=== PATIENT | female | born 1960 | race Caucasian/White ===

== ENCOUNTER 2017-05-19 10:02 | Inpatient (IN) ==
[2017-05-19] MEDS ORDERED: ASPIRIN 325 MG TABLET PO STA (10:36)
[2017-05-19 10:49] LABS: Basophils % 0.4 % (0.0-0.8); Eosinophils # 0.3 10*3/uL (0.0-0.87); Eosinophils % 2.6 % (0.00-10.9); Hematocrit 43.6 VOL% (35.7-47.0); Hemoglobin 14.5 GM/DL (12.0-16.0); Immature Granulocytes % 0.3 %; Immature Granulocytes Absolute 0.03 #; Lymphocytes # 3.4 10*3/uL (1.4-4.0); Mean Corpuscular HGB Conc 33.3 GM/DL (32-36); Mean Corpuscular Hemoglobin 29 PG (27-34); Mean Corpuscular Volume 88.1 FL (87-102); Mean Platelet Volume 11.1 FL (9.6-12.0); Monocytes # 0.9 10*3/uL (0.11-0.8); Neutrophils # 5.2 10*3/uL (1.4-7.4); Neutrophils % 52.7 % (38.7-73.9); Platelet Count 316 T/CUMM (130-400); Red Blood Count 4.95 MC/CUMM (3.8-5.5); Red Cell Distribution Width 13.7 % (9.3-17.3); White Blood Count 9.8 T/CUMM (4-12)
[2017-05-19] MEDS ORDERED: ASPIRIN 325 MG TABLET ONE (11:03)
[2017-05-19] MEDS ORDERED: NITROGLYCERIN SL 0.4 MG TABLET SL ONE (11:03)
[2017-05-19] MEDS: NITROGLYCERIN SL 0.4 MG TABLET SL PRN ×3 (11:05→11:23)
[2017-05-19 11:23] LABS: Calcium 9.2 MG/DL (8.5-10.1); Osmolality,Calculated 276.4 MOS/KG (273-304); Potassium 4.6 MMOL/L (3.5-5.1)
[2017-05-19] MEDS ORDERED: ACETAMINOPHEN 325 MG TABLET PO PRN (12:11)
[2017-05-19] MEDS ORDERED: ZALEPLON 5 MG CAPSULE PO PRN (12:11)
[2017-05-19] MEDS ORDERED: hydrALAZINE 20 MG/1 ML VIAL IV PRN (12:14)
[2017-05-19] MEDS ORDERED: DIAZEPAM 5 MG TABLET PO ONE (12:15)
[2017-05-19] MEDS ORDERED: diphenhydrAMINE CAP 25 MG CAPSULE PO ONE (12:15)
[2017-05-19] MEDS ORDERED: MAGNESIUM SULF RIDER 2 GM in PREMIX 1 EACH IV PRN (12:15)
[2017-05-19] MEDS ORDERED: ALPRAZolam 0.25 MG TABLET PO PRN (12:17)
[2017-05-19] MEDS ORDERED: METOPROLOL TARTRATE 25 MG TABLET ONE (18:04)
[2017-05-19] MEDS ORDERED: PANTOPRAZOLE 40 MG TABLET PO ONE (18:04)
[2017-05-19] MEDS: PANTOPRAZOLE 40 MG TABLET PO SCH (18:08)
[2017-05-19] MEDS: METOPROLOL TARTRATE 25 MG TABLET PO SCH ×2 (18:08→21:15)
[2017-05-19] MEDS ORDERED: ENOXAPARIN 40 MG/0.4 ML SYRINGE SUBCUT SCH (21:00)
[2017-05-19] MEDS ORDERED: ATORVASTATIN 80 MG TABLET PO SCH (21:00)
[2017-05-20 04:56] LABS: Basophils # 0.1 10*3/uL (0.0-0.2); Basophils % 0.5 % (0.0-0.8); Eosinophils # 0.3 10*3/uL (0.0-0.87); Eosinophils % 3.2 % (0.00-10.9); Hematocrit 39.6 VOL% (35.7-47.0); Hemoglobin 12.9 GM/DL (12.0-16.0); Immature Granulocytes % 0.2 %; Immature Granulocytes Absolute 0.02 #; Lymphocytes # 4.3 10*3/uL (1.4-4.0); Lymphocytes % 45.6 % (21.3-54.2); Mean Corpuscular HGB Conc 32.6 GM/DL (32-36); Mean Corpuscular Hemoglobin 29 PG (27-34); Mean Corpuscular Volume 89.6 FL (87-102); Monocytes # 0.7 10*3/uL (0.11-0.8); Neutrophils # 4.1 10*3/uL (1.4-7.4); Neutrophils % 43.5 % (38.7-73.9); Platelet Count 294 T/CUMM (130-400); Red Blood Count 4.42 MC/CUMM (3.8-5.5); Red Cell Distribution Width 13.8 % (9.3-17.3); White Blood Count 9.4 T/CUMM (4-12)
[2017-05-20] MEDS: SODIUM CHLORIDE 0.45% 1,000 ML IV SCH ×3 (05:23→15:30)
[2017-05-20 05:45] LABS: Calcium 8.1 MG/DL (8.5-10.1); Magnesium 2.3 MG/DL (1.8-2.4); Osmolality,Calculated 275.7 MOS/KG (273-304); Potassium 4.5 MMOL/L (3.5-5.1); Risk Ratio 8.37; Thyroid Stimulating Hormone 1.25 uIU/ml (0.358-3.74); VLDL CHOLESTEROL 64.4 MG/DL
[2017-05-20] MEDS ORDERED: LISINOPRIL 10 MG TABLET PO SCH (09:00)
[2017-05-20] MEDS ORDERED: ASPIRIN EC 81 MG TABLET PO SCH (09:00)
[2017-05-20] MEDS: PANTOPRAZOLE 40 MG TABLET PO SCH (09:44)
[2017-05-20] MEDS: METOPROLOL TARTRATE 25 MG TABLET PO SCH (09:44)
[2017-05-20] MEDS ORDERED: DIAZEPAM 5 MG TABLET ONE (12:31)
[2017-05-20] MEDS ORDERED: diphenhydrAMINE CAP 50 MG CAPSULE ONE ×2 (12:31→12:56)
[2017-05-20] MEDS ORDERED: HEPARIN/NACL 0.9% 2 UNITS/ML 2,000 ML IV ONE (12:51)
[2017-05-20] MEDS ORDERED: LIDOCAINE 1% 20 ML VIAL ONE (12:51)
[2017-05-20] MEDS ORDERED: MIDAZOLAM 2 MG/2 ML VIAL ONE (12:57)
[2017-05-20] MEDS ORDERED: NITROGLYCERIN DRIP 50 MG/250 ML BOTTLE IV ONE (12:57)
[2017-05-20] MEDS ORDERED: VERAPAMIL 5 MG/2 ML VIAL ONE (12:57)
[2017-05-20] MEDS ORDERED: HYDROmorphone 2 MG/1 ML VIAL ONE (12:59)
[2017-05-20] MEDS ORDERED: ENOXAPARIN 30 MG/0.3 ML SYRINGE ONE (13:21)
[2017-05-20] MEDS ORDERED: BISACODYL 5 MG TABLET PO PRN (13:51)
[2017-05-20] MEDS ORDERED: ONDANSETRON 4 MG/2 ML VIAL IV PRN (13:51)
[2017-05-20] MEDS ORDERED: guaiFENesin/DM ER 600-30 MG TABLET PO PRN (13:51)
[2017-05-20 18:59] VITALS: BP 151/70
== END 2017-05-20 19:38 | disposition home or self-care (01) | DRG 313 ==
LOC: N.ED 10:02 → N.EDINP 12:11 → SUATTDRO 12:11 → N.TELEN 19:20
PROVIDERS: ADMIT Internal Medicine Cardiovascular Disease; ATTEND Internal Medicine Cardiovascular Disease

== ENCOUNTER 2021-09-18 12:31 | Inpatient (IN) ==
[2021-09-18 13:01] LABS: Basophils % 0.2 % (0.0-0.8); Eosinophils # 0.1 10*3/uL (0.0-0.87); Eosinophils % 0.7 % (0.00-10.9); Hematocrit 36.5 VOL% (35.7-47.0); Hemoglobin 11.9 GM/DL (12.0-16.0); Immature Granulocytes % 0.6 %; Immature Granulocytes Absolute 0.08 #; Lymphocytes # 2.4 10*3/uL (1.4-4.0); Lymphocytes % 17.4 % (21.3-54.2); Mean Corpuscular HGB Conc 32.6 GM/DL (32-36); Mean Corpuscular Volume 81.3 FL (87-102); Mean Platelet Volume 10.5 FL (9.6-12.0); Monocytes % 7.1 % (1.7-12.7); Platelet Count 463 T/CUMM (130-400); Red Blood Count 4.49 MC/CUMM (3.8-5.5); Red Cell Distribution Width 15.4 % (9.3-17.3); White Blood Count 13.5 T/CUMM (4-12)
[2021-09-18 13:25] LABS: Alanine Aminotransferase 14 U/L (13-56); Albumin 3.6 G/DL (3.4-5.0); Alkaline Phosphatase 106 U/L (45-117); Aspartate Amino Transferase 11 U/L (0-37); Bilirubin,Total < 0.39 MG/DL (0.20-1.00); Blood Urea Nitrogen 12 MG/DL (7-18); Calcium 9.7 MG/DL (8.5-10.1); Carbon Dioxide 25 MMOL/L (21-32); Chloride 103 MMOL/L (98-107); Glucose 114 MG/DL (74-106); Osmolality,Calculated 273.8 MOS/KG (273-304); Potassium 3.8 MMOL/L (3.5-5.1); Sodium 137 MMOL/L (136-145); Total Protein 7.5 G/DL (6.4-8.2)
[2021-09-18 15:56] LABS: Hyaline Casts,Urine 71 /LPF (0-3); Mucus,Urine Many /LPF (Occasional); RBC,Urine 14 /HPF (0-4); Squamous Epithelial Cell,Urine Occasional /HPF (0-10)
[2021-09-18 15:57] LABS: Bilirubin,Urine Small mg/dL (Negative); Blood, Urine Trace mg/dL (Negative); Glucose,Urine (UA) Negative (Negative); Ketones,Urine 15 mg/dL (Negative); Nitrite,Urine Negative (Negative); Protein,Urine 100 mg/dL (Negative); Urine Appearance Clear (Clear); Urine Color Yellow (Yellow); Urine Specific Gravity 1.032 (1.001-1.035); Urine Urobilinogen 0.2 eU/dL (<2.0); Urine pH 5.5 (4.5-8.0)
[2021-09-18 16:21] LABS: Barbiturates Screen,Urine Negative (Negative); Benzodiazepines Screen,Urine Negative (Negative); Cannabinoid Screen,Urine Positive (Negative); Opiate Screen,Urine Negative (Negative); Phencyclidine Screen,Urine Negative (Negative)
[2021-09-18] MEDS ORDERED: GLUCAGON 1 MG VIAL IM PRN (16:48)
[2021-09-18] MEDS ORDERED: ONDANSETRON 4 MG/2 ML VIAL IV PRN (16:48)
[2021-09-18] MEDS ORDERED: DEXTROSE 10% 250 ML BAG IV PRN (16:55)
[2021-09-18 19:58] LABS: Risk Ratio 6.7; Thyroid Stimulating Hormone 2.45 uIU/ml (0.358-3.74); VLDL Cholesterol 27.2 MG/DL
[2021-09-18] MEDS: ACETAMINOPHEN 325 MG TABLET PO PRN (21:11)
[2021-09-18] MEDS: ENOXAPARIN 40 MG/0.4 ML SYRINGE SUBCUT SCH (21:11)
[2021-09-18 21:41] LABS: Folate 3.69 NG/ML (5.38-24.0)
[2021-09-18] MEDS: LACTATED RINGERS 1,000 ML IV SCH (22:02)
[2021-09-18] MEDS: DOCUSATE SODIUM 100 MG CAPSULE PO SCH (23:58)
[2021-09-19 04:31] LABS: Basophils % 0.4 % (0.0-0.8); Eosinophils # 0.4 10*3/uL (0.0-0.87); Eosinophils % 3.6 % (0.00-10.9); Hematocrit 32.6 VOL% (35.7-47.0); Hemoglobin 10.3 GM/DL (12.0-16.0); Immature Granulocytes % 0.3 %; Immature Granulocytes Absolute 0.03 #; Lymphocytes # 3.5 10*3/uL (1.4-4.0); Lymphocytes % 32.6 % (21.3-54.2); Mean Corpuscular HGB Conc 31.6 GM/DL (32-36); Mean Corpuscular Volume 82.3 FL (87-102); Mean Platelet Volume 10.5 FL (9.6-12.0); Monocytes % 8.8 % (1.7-12.7); Neutrophils % 54.3 % (38.7-73.9); Platelet Count 372 T/CUMM (130-400); Red Blood Count 3.96 MC/CUMM (3.8-5.5); Red Cell Distribution Width 15.5 % (9.3-17.3); White Blood Count 10.9 T/CUMM (4-12)
[2021-09-19 05:00] LABS: Alanine Aminotransferase 14 U/L (13-56); Albumin 2.7 G/DL (3.4-5.0); Alkaline Phosphatase 87 U/L (45-117); Aspartate Amino Transferase 11 U/L (0-37); Bilirubin,Total < 0.39 MG/DL (0.20-1.00); Blood Urea Nitrogen 16 MG/DL (7-18); Calcium 9.4 MG/DL (8.5-10.1); Carbon Dioxide 28 MMOL/L (21-32); Chloride 107 MMOL/L (98-107); Glucose 114 MG/DL (74-106); Osmolality,Calculated 282.3 MOS/KG (273-304); Potassium 3.2 MMOL/L (3.5-5.1); Sodium 141 MMOL/L (136-145); Total Protein 6.6 G/DL (6.4-8.2)
[2021-09-19] MEDS: PANTOPRAZOLE 40 MG TABLET PO SCH (08:16)
[2021-09-19] MEDS: DOCUSATE SODIUM 100 MG CAPSULE PO SCH ×2 (08:16→20:35)
[2021-09-19] MEDS: ASPIRIN EC 325 MG TABLET PO SCH (08:16)
[2021-09-19] MEDS: LACTATED RINGERS 1,000 ML IV SCH ×2 (09:47→09:49)
[2021-09-19] MEDS: ROSUVASTATIN 20 MG TABLET PO SCH (12:44)
[2021-09-19] MEDS ORDERED: ERGOCALCIFEROL 50,000 UNIT CAPSULE PO SCH (13:00)
[2021-09-19] MEDS: busPIRone 10 MG TABLET PO SCH ×2 (14:29→20:30)
[2021-09-19] MEDS: FERROUS SULFATE 325 MG TABLET PO SCH (14:30)
[2021-09-19] MEDS: ENOXAPARIN 40 MG/0.4 ML SYRINGE SUBCUT SCH (18:21)
[2021-09-20 05:12] LABS: Basophils % 0.5 % (0.0-0.8); Eosinophils # 0.4 10*3/uL (0.0-0.87); Eosinophils % 4.7 % (0.00-10.9); Hematocrit 34.3 VOL% (35.7-47.0); Hemoglobin 10.7 GM/DL (12.0-16.0); Immature Granulocytes % 0.3 %; Immature Granulocytes Absolute 0.03 #; Lymphocytes # 2.5 10*3/uL (1.4-4.0); Lymphocytes % 29.2 % (21.3-54.2); Mean Corpuscular HGB Conc 31.2 GM/DL (32-36); Mean Corpuscular Volume 82.9 FL (87-102); Mean Platelet Volume 10.9 FL (9.6-12.0); Monocytes # 0.7 10*3/uL (0.11-0.8); Neutrophils % 57.3 % (38.7-73.9); Platelet Count 370 T/CUMM (130-400); Red Blood Count 4.14 MC/CUMM (3.8-5.5); Red Cell Distribution Width 15.9 % (9.3-17.3); White Blood Count 8.7 T/CUMM (4-12)
[2021-09-20 05:25] LABS: Calcium 9.1 MG/DL (8.5-10.1); Osmolality,Calculated 281.3 MOS/KG (273-304); Potassium 3.4 MMOL/L (3.5-5.1)
[2021-09-20] MEDS ORDERED: CYANOCOBALAMIN 1000 MCG/1 ML VIAL SUBCUT ONE (07:45)
[2021-09-20] MEDS: DOCUSATE SODIUM 100 MG CAPSULE PO SCH ×2 (08:40→21:17)
[2021-09-20] MEDS: busPIRone 10 MG TABLET PO SCH ×3 (08:40→21:17)
[2021-09-20] MEDS: FERROUS SULFATE 325 MG TABLET PO SCH (08:40)
[2021-09-20] MEDS: PARoxetine 20 MG TABLET PO SCH (08:40)
[2021-09-20] MEDS: ASPIRIN EC 325 MG TABLET PO SCH (08:40)
[2021-09-20] MEDS: ROSUVASTATIN 20 MG TABLET PO SCH (08:41)
[2021-09-20] MEDS: PANTOPRAZOLE 40 MG TABLET PO SCH (08:41)
[2021-09-20] MEDS: FOLIC ACID 1 MG TABLET PO SCH ×2 (10:14→21:17)
[2021-09-20] MEDS: CLOPIDOGREL 75 MG TABLET PO SCH (12:51)
[2021-09-20] MEDS: ASPIRIN EC 81 MG TABLET PO SCH (12:54)
[2021-09-20] MEDS: LACTATED RINGERS 1,000 ML IV SCH (12:58)
[2021-09-20] MEDS ORDERED: ATORVASTATIN 80 MG TABLET PO SCH (21:00)
[2021-09-20] MEDS: ASCORBIC ACID 500 MG TABLET PO SCH (21:17)
[2021-09-20] MEDS: ACETAMINOPHEN 325 MG TABLET PO PRN (21:17)
[2021-09-21 04:03] LABS: Basophils % 0.4 % (0.0-0.8); Eosinophils # 0.5 10*3/uL (0.0-0.87); Eosinophils % 5.1 % (0.00-10.9); Hematocrit 32.9 VOL% (35.7-47.0); Hemoglobin 10.4 GM/DL (12.0-16.0); Immature Granulocytes % 0.4 %; Immature Granulocytes Absolute 0.04 #; Lymphocytes # 2.8 10*3/uL (1.4-4.0); Lymphocytes % 28.3 % (21.3-54.2); Mean Corpuscular HGB Conc 31.6 GM/DL (32-36); Mean Platelet Volume 10.6 FL (9.6-12.0); Monocytes # 0.8 10*3/uL (0.11-0.8); Monocytes % 7.8 % (1.7-12.7); Platelet Count 366 T/CUMM (130-400); Red Blood Count 4.01 MC/CUMM (3.8-5.5); Red Cell Distribution Width 15.6 % (9.3-17.3); White Blood Count 9.8 T/CUMM (4-12)
[2021-09-21 04:24] LABS: Calcium 8.8 MG/DL (8.5-10.1); Osmolality,Calculated 283.1 MOS/KG (273-304); Potassium 3.7 MMOL/L (3.5-5.1)
[2021-09-21] MEDS ORDERED: KETOROLAC 15 MG/1 ML VIAL IV ONE (09:25)
[2021-09-21] MEDS ORDERED: SODIUM CHLORIDE 0.9% 1,000 ML IV SCH (11:00)
[2021-09-21] MEDS ORDERED: LIDOCAINE 2% 5 ML VIAL ONE (11:56)
[2021-09-21] MEDS ORDERED: propofoL 200 MG/20 ML VIAL IV ONE ×2 (11:56→12:42)
[2021-09-21] MEDS: FERROUS SULFATE 325 MG TABLET PO SCH (15:10)
[2021-09-21] MEDS: ASPIRIN EC 81 MG TABLET PO SCH (15:10)
[2021-09-21] MEDS: DOCUSATE SODIUM 100 MG CAPSULE PO SCH (15:10)
[2021-09-21] MEDS: busPIRone 10 MG TABLET PO SCH ×2 (15:10→15:14)
[2021-09-21] MEDS: ASCORBIC ACID 500 MG TABLET PO SCH (15:11)
[2021-09-21] MEDS: CLOPIDOGREL 75 MG TABLET PO SCH (15:11)
[2021-09-21] MEDS: PANTOPRAZOLE 40 MG TABLET PO SCH (15:11)
[2021-09-21] MEDS: PARoxetine 20 MG TABLET PO SCH (15:11)
[2021-09-21] MEDS: FOLIC ACID 1 MG TABLET PO SCH (15:11)
[2021-09-21] MEDS: ACETAMINOPHEN 325 MG TABLET PO PRN (15:12)
[2021-09-21 18:30] VITALS: BP 118/68
== END 2021-09-21 18:12 | disposition home or self-care (01) | DRG 65 ==
LOC: N.ED 12:31 → N.EDINP 12:31 → N.TELES 09-19 06:07 → SUATTDRO 09-19 12:20
PROVIDERS: ADMIT Internal Medicine; ATTEND Internal Medicine